=== PATIENT | female | born 1955 | race Caucasian/White ===

== ENCOUNTER → 2018-03-01 | Outpatient (CLI) | payer OTHER ==
[~2018-03-01] MED LIST: IOPAMIDOL 370 MG/ML 200 ML INFUS..BTL INJ ONE; PRAVASTATIN SOD40 MG PO; RANITIDINE HCL150 MG PO; SODIUM CHLORIDE 0.9% 50ML 50 ML ONE; TRIAMTERENE-HCTZ1 EA PO
--- NOTE | 2018-03-01 11:09 | Diagnostic Imaging Report ---
EXAM: US ABDOMEN COMPLETE DATE: 03/01/2018 9:44 AM INDICATION: Bloating, dyspepsia, abnormal liver function tests COMPARISON: None TECHNIQUE: Transverse and longitudinal ponce scale and color doppler sonographic images of the upper abdomen were obtained. FINDINGS: LIVER 13.3 cm in the right midclavicular line. Normal echogenicity, normal contour, no masses. SPLEEN 9.8 cm in maximum diameter. Normal echogenicity, no masses. GALLBLADDER No stones, sludge, wall-thickening or pericholecystic fluid. Negative sonographic Joseph's sign. BILE DUCTS No intra nor extra-hepatic biliary dilation. Common bile duct measures 0.3 cm PANCREAS: Visualized portions are normal. RIGHT KIDNEY: 10.4 cm Echogenicity: Normal Collecting System: No hydronephrosis Stones: None Cyst/Mass: None LEFT KIDNEY: 10 cm Echogenicity: Normal Collecting System: No hydronephrosis Stones: None Cyst/Mass: None VESSELS: Aorta: Nonaneurysmal Inferior Vena Cava: Patent Main Portal Vein: 1.0 cm, normal size with hepatopetal flow. FREE FLUID: None IMPRESSION: Unremarkable abdominal ultrasound. Signed by: Dr. Hu Abbott M.D. on 03/01/2018 11:04 AM
[2018-03-01 11:31] LABS: BLOOD UREA NITROGEN 13 mg/dL (7-26); BUN/CREATININE RATIO 15 (6-25); CREATININE, SERUM 0.86 mg/dL (0.57-1.11); EST GLOMERULAR FILTRATION RATE > 60 ML/MIN (60-)
--- NOTE | 2018-03-01 12:43 | Diagnostic Imaging Report ---
EXAMINATION: CT of the abdomen and pelvis with contrast. TECHNIQUE: Spiral CT images of the abdomen and pelvis were performed from the lung bases to the lesser trochanters after the intravenous administration of 100 cc of Isovue-370 and the oral administration of water. Coronal and sagittal reformatted images were obtained. COMPARISON: Abdominal ultrasound same day CLINICAL HISTORY:Abnormal liver function tests, bloating, chronic pancreatitis DISCUSSION: ABDOMEN/PELVIS: LOWER THORAX:Trace subsegmental atelectasis in the dependent lower lobes. HEPATOBILIARY: Subcentimeter hypoattenuating lesion in hepatic segment 5, too small to further characterize but likely to represent a small cyst. Otherwise no focal hepatic lesions. Hepatic parenchyma is diffusely hypoattenuating relative to the spleen compatible with steatosis. The gallbladder is normal. SPLEEN: No splenomegaly. PANCREAS: No focal masses or ductal dilatation. ADRENALS: No adrenal nodules. KIDNEYS/URETERS: No hydronephrosis, stones, or solid mass lesions. PELVIC ORGANS/BLADDER: The urinary bladder is incompletely distended but otherwise unremarkable. The uterus is anteflexed and contains a 4 cm hypoattenuating mass along the anterior body which exerts mass effect on the urinary bladder and contains a coarse internal calcification. 2 cm simple left adnexal cyst. PERITONEUM/RETROPERITONEUM: No ascites. No pneumoperitoneum. LYMPH NODES: No pelvic sidewall, retroperitoneal, or mesenteric lymphadenopathy. VESSELS: The abdominal aorta, major branch vessels, and iliac arterial systems are patent without aneurysmal dilatation. Mild atherosclerotic calcification of the abdominal aorta. Hepatic arterial anatomy appears conventional. 2 right renal arteries and a single left renal artery. Portal vein, splenic vein, and central superior mesenteric vein are patent. GI TRACT: The large bowel shows no evidence of distention or wall thickening. There are multiple diverticula scattered along the descending and sigmoid colon without wall thickening or adjacent inflammatory change. The appendix is normal. Prominence of the gastric rugal folds is a consequence of underdistention. No small bowel dilatation to suggest obstruction. BONES AND SOFT TISSUE: No osseous destructive lesions. Multilevel degenerative disc changes and degenerative facet arthropathy of the lumbar spine. No focal soft tissue abnormalities. IMPRESSION: No acute intra-abdominal or pelvic CT abnormalities. Hepatic steatosis. Large bowel diverticulosis without evidence of diverticulitis. 2 cm simple left adnexal cyst should be assessed for stability or resolution by transvaginal pelvic ultrasound in 8-12 weeks in a patient of this age. 4 cm anterior uterine fibroid. Signed by: Dr. Hu Abbott M.D. on 03/01/2018 12:37 PM
== END ==
LOC: US 09:29
PROVIDERS: ATTEND Internal Medicine Gastroenterology
DX: K86.1 Other chronic pancreatitis (principal); R14.0 Abdominal distension (gaseous); R74.0 Nonspecific elevation of levels of transaminase and lactic acid dehydrogenase [LDH]
CPT/HCPCS: 36415; 74177; 76700; 82565; 84520; Q9967

== ENCOUNTER → 2020-10-17 | Outpatient (CLI) | payer OTHER ==
[~2020-10-17] MED LIST changes: -IOPAMIDOL 370 MG/ML 200 ML INFUS..BTL INJ ONE; -SODIUM CHLORIDE 0.9% 50ML 50 ML ONE
== END ==
LOC: CT 13:34
PROVIDERS: ATTEND Internal Medicine Pulmonary Disease
DX: R06.02 Shortness of breath (principal)
CPT/HCPCS: 71250

== ENCOUNTER → 2022-05-07 | Outpatient (CLI) | payer OTHER | LOC: RAD 11:21 | PROVIDERS: ATTEND Family Medicine | DX: J40 Bronchitis, not specified as acute or chronic (principal) | CPT/HCPCS: 71046 ==

== ENCOUNTER → 2024-02-10 | Outpatient (REF) | payer MEDICARE | LOC: RAD 14:11 | PROVIDERS: ATTEND Internal Medicine Pulmonary Disease | DX: R06.02 Shortness of breath (principal) | CPT/HCPCS: 71046 ==